=== PATIENT | male | born 1990 | race Hispanic/Latino ===

== ENCOUNTER 2019-12-17 13:48 | Emergency (ER) | payer OTHER ==
--- NOTE | 2019-12-17 14:26 | ER ---
Nurse's Notes [facility] Name: Abundio Mendoza Age: 29 yrs Sex: Male : 1990 Arrival Date: 12/17/2019 Time: 13:52 Bed 23 Private MD: Diagnosis: Displaced fracture of proximal phalanx of right little finger Presentation: 12/16 13:59 Chief complaint: Patient states: i was tying my dog up after work and the rope caught tw2 and it popped my pinky out of place and the pain just gotten worse, RIGHT hand. Chief complaint: Patient states: i head and felt a pop yesterday and i tried to get it back in place but it hurts so bad though. Coronavirus screen: The patient has NOT traveled to a country currently being monitored by the CDC within the last 14 days. Ebola Screen: Patient denies travel to an Ebola-affected area in the 21 days before illness onset. Initial Sepsis Screen: Does the patient meet any 2 criteria? No. Patient's initial sepsis screen is negative. Does the patient have a suspected source of infection? No. Patient's initial sepsis screen is negative. Risk Assessment: Do you want to hurt yourself or someone else? Patient reports no desire to harm self or others. 13:59 Method Of Arrival: Ambulatory tw2 13:59 Acuity: JESSENIA 4 tw2 Triage Assessment: 14:01 General: Appears uncomfortable, slender, Behavior is calm, cooperative, appropriate for tw2 age. Pain: Complains of pain in dorsal aspect of proximal phalanx of right ring finger, dorsal aspect of proximal phalanx of right little finger, dorsum of right hand, palmar aspect of proximal phalanx of right little finger, palmar aspect of proximal phalanx of right ring finger and outer aspect of right palm. Musculoskeletal: Circulation, motion, and sensation intact. Swelling present in right hand. Injury Description: see triage note. Historical: - Allergies: 14:02 No Known Drug Allergies; tw2 - Home Meds: 14:02 None [Active]; tw2 - PMHx: 14:02 None; tw2 - PSHx: 14:02 Cholecystectomy; tw2 - Immunization history:: Last tetanus immunization: < 5 years ago. - Social history:: Smoking status: Patient reports the use of cigarette tobacco products, smokes one-half pack cigarettes per day. Vital Signs: 13:59 BP 133 / 84; Pulse 96; Resp 17; Temp 98.9(TE); Pulse Ox 100% on R/A; Weight 70.31 kg tw2 (R); Height 5 ft. 9 in. (175.26 cm); Pain 10/10; 13:59 Body Mass Index 22.89 (70.31 kg, 175.26 cm) tw2 ED Course: 13:52 Patient arrived in ED. fj1 14:01 Triage completed. tw2 14:01 Priya Alaniz FNP-C [facility]. kb 14:01 Chandu Garcia MD is Attending Physician. kb 14:01 Arm band placed on. tw2 14:23 Hand Right 3 View XRAY In Process Unspecified. EDMS 14:32 Joie Dean, RN is Primary Nurse. ls4 Administered Medications: 14:20 CANCELLED (Other Intervention Used): TORadol 30 mg IM once kb 14:35 Drug: Tryon (7.5 mg-325 mg) 1 tabs Route: PO; ls4 Outcome: 14:25 Discharge ordered by . kb 14:45 Patient left the ED. ls4 Signatures: Dispatcher [employer] EDHI Priya Alaniz FNP-C FNP-Angelica Young, RN RN tw2 Joie Dean, RN RN ls4 Kj Graham fj1
--- NOTE | 2019-12-17 14:27 | EDPHYS ---
Physician Documentation [facility] Name: Abundio Mendoza Age: 29 yrs Sex: Male : 1990 Arrival Date: 12/17/2019 Time: 13:52 Bed 23 Private MD: ED Physician Chandu Garcia HPI: 12/16 14:08 This 29 yrs old Male presents to ER via Ambulatory with complaints of Hand kb Injury. 14:08 The patient or guardian reports decreased range of motion, injury, pain, swelling, kb tenderness. The complaints affect the right little finger. Context: The problem was sustained at home, resulted from dog pulled on leash . Onset: The symptoms/episode began/occurred yesterday. Modifying factors: The symptoms are alleviated by nothing, the symptoms are aggravated by movement. Associated signs and symptoms: The patient has no apparent associated signs or symptoms. Severity of symptoms: At their worst the symptoms were moderate, in the emergency department the symptoms are unchanged. The patient has not experienced similar symptoms in the past. The patient has not recently seen a physician. Historical: - Allergies: 14:02 No Known Drug Allergies; tw2 - Home Meds: 14:02 None [Active]; tw2 - PMHx: 14:02 None; tw2 - PSHx: 14:02 Cholecystectomy; tw2 - Immunization history:: Last tetanus immunization: < 5 years ago. - Social history:: Smoking status: Patient reports the use of cigarette tobacco products, smokes one-half pack cigarettes per day. ROS: 14:05 Constitutional: Negative for fever, chills, and weight loss, Cardiovascular: Negative kb for chest pain, palpitations, and edema, Respiratory: Negative for shortness of breath, cough, wheezing, and pleuritic chest pain, Abdomen/GI: Negative for abdominal pain, nausea, vomiting, diarrhea, and constipation, Back: Negative for injury and pain, Skin: Negative for injury, rash, and discoloration, Neuro: Negative for headache, weakness, numbness, tingling, and seizure. 14:05 MS/extremity: Positive for injury or acute deformity, decreased range of motion, pain, swelling, tenderness, of the right little finger. Exam: 14:05 Constitutional: This is a well developed, well nourished patient who is awake, alert, kb and in no acute distress. Head/Face: Normocephalic, atraumatic. Chest/axilla: Normal chest wall appearance and motion. Nontender with no deformity. No lesions are appreciated. Cardiovascular: Regular rate and rhythm with a normal S1 and S2. No gallops, murmurs, or rubs. Normal PMI, no JVD. No pulse deficits. Respiratory: Lungs have equal breath sounds bilaterally, clear to auscultation and percussion. No rales, rhonchi or wheezes noted. No increased work of breathing, no retractions or nasal flaring. Abdomen/GI: Soft, non-tender, with normal bowel sounds. No distension or tympany. No guarding or rebound. No evidence of tenderness throughout. Skin: Warm, dry with normal turgor. Normal color with no rashes, no lesions, and no evidence of cellulitis. Neuro: Awake and alert, GCS 15, oriented to person, place, time, and situation. Cranial nerves II-XII grossly intact. Motor strength 5/5 in all extremities. Sensory grossly intact. Cerebellar exam normal. Normal gait. 14:05 Musculoskeletal/extremity: Extremities: grossly normal except: noted in the right little finger: decreased ROM, pain, swelling, tenderness, ROM: limited active range of motion, in the right little finger, Circulation is intact in all extremities. Sensation intact. Vital Signs: 13:59 BP 133 / 84; Pulse 96; Resp 17; Temp 98.9(TE); Pulse Ox 100% on R/A; Weight 70.31 kg tw2 (R); Height 5 ft. 9 in. (175.26 cm); Pain 10/10; 13:59 Body Mass Index 22.89 (70.31 kg, 175.26 cm) tw2 MDM: 14:03 Patient medically screened. kb 14:05 Data reviewed: vital signs, nurses notes. Data interpreted: Pulse oximetry: on room air kb is 100 %. Interpretation: normal. 14:24 Data reviewed: radiologic studies. Test interpretation: by ED physician or midlevel kb provider: plain radiologic studies, displaced fracture of proximal phalanx on right fifth digit. Counseling: I had a detailed discussion with the patient and/or guardian regarding: the historical points, exam findings, and any diagnostic results supporting the discharge/admit diagnosis, radiology results, the need for outpatient follow up, a orthopedic surgeon, to return to the emergency department if symptoms worsen or persist or if there are any questions or concerns that arise at home. 14:27 ED course: [place] [employer] shows no prescriptions. kb 14:28 ED course: [employer] aware reviewed. No history of medications prescribed. pm1 12/16 14:01 Order name: Hand Right 3 View XRAY; Complete Time: 14:36 kb 03 14:22 Order name: Finger Splint; Complete Time: 14:42 kb Administered Medications: 14:20 CANCELLED (Other Intervention Used): TORadol 30 mg IM once kb 14:35 Drug: Ayden (7.5 mg-325 mg) 1 tabs Route: PO; ls4 Disposition: 17:01 Co-signature as Attending Physician, Chandu Garcia MD. rn Disposition: 12/17/19 14:25 Discharged to Home. Impression: Displaced fracture of proximal phalanx of right little finger. - Condition is Stable. - Discharge Instructions: Finger Fracture, [id number]. - Prescriptions for Tylenol- Codeine #3 300-30 mg Oral Tablet - take 1 tablet by ORAL route every 6 hours As needed; 15 tablet. - Medication Reconciliation Form, Thank You Letter, Antibiotic Education, Prescription Opioid Use form. - Follow up: Emergency Department; When: As needed; Reason: Worsening of condition. Follow up: Private Physician; When: 2 - 3 days; Reason: Recheck today's complaints, Continuance of care, Re-evaluation by your physician. Signatures: Dispatcher [employer] EDMS Priya Alaniz, TECHNICAL INSPECTOR-C TECHNICAL INSPECTOR-Ckb Chandu Garcia MD MD rn Marinas, Patrick, [employer] pm1 Angelica Pete RN RN tw2 Joie Dean RN RN ls4 Corrections: (The following items were deleted from the chart) 14:20 14:05 TORadol 30 mg IM once ordered. kb kb 14:45 14:25 12/17/2019 14:25 Discharged to Home. Impression: Displaced fracture of proximal ls4 phalanx of right little finger. Condition is Stable. Forms are Medication Reconciliation Form, Thank You Letter, Antibiotic Education, Prescription Opioid Use. Follow up: Emergency Department; When: As needed; Reason: Worsening of condition. Follow up: Private Physician; When: 2 - 3 days; Reason: Recheck today's complaints, Continuance of care, Re-evaluation by your physician. kb
--- NOTE | 2019-12-17 14:32 | RAD REPORT ---
EXAM DESCRIPTION: RAD - Hand Right 3 View - 12/17/2019 2:22 pm CLINICAL HISTORY: Right hand pain status post injury FINDINGS: Mildly to moderately displaced fracture involves the mid to distal aspect of the fifth pro ximal phalanx. No dislocation
[2019-12-17] MEDS ORDERED: HYDROCODONE/APAP 7.5/325 MG TAB ONE (14:38)
[2019-12-17 14:50] VITALS: BP 133/84; TEMP 98.9; O2SAT 100
== END 2019-12-17 14:45 | disposition home or self-care (01) ==
LOC: ER 13:48
PROC: 2W3JX1Z Immobilization of Right Finger using Splint (ICD-10-PCS; principal; 2019-12-17)
DX: S62.616A Displaced fracture of proximal phalanx of right little finger, initial encounter for closed fracture (principal); X58.XXXA Exposure to other specified factors, initial encounter; Y93.K1 Activity, walking an animal; Y92.9 Unspecified place or not applicable; F17.210 Nicotine dependence, cigarettes, uncomplicated
CPT/HCPCS: 99283

== ENCOUNTER 2020-04-08 19:20 | Emergency (ER) | payer OTHER ==
--- OUTSIDE RECORDS SUMMARY | 2020-04-08 19:23 | XMS REPORT | Continuity of Care Document ---
:1990 Author Organization [facility] t Address [address] [place] [address] Care Team Providers Name Role Phone Jose L Lama Attending Clinician Problems This patient has no known problems. Allergies, Adverse Reactions, Alerts This patient has no known allergies or adverse reactions. Medications This patient has no known medications. Procedures This patient has no known procedures. Encounters Start End Encounter Admission Attending Care Care Encounter Source Date/Time Date/Time Type Type Clinicians Facility Department ID 2020-02-06 2020-02-06 [facility] [id number] 15:45:00 23:59:00 Encounter [facility] [id number] Surgical [id number] Specialti [id number] es [address] 2020-02-06 2020-02-06 [facility] [id number] 15:02:05 15:17:05 Visit [facility] [id number] Surgical [id number] Specialti [id number] es [address] [place] Results This patient has no known results.
--- OUTSIDE RECORDS SUMMARY | 2020-04-08 19:23 | XMS REPORT | Summary of Care ---
:1990 Author Organization [facility] Address [address] [place] [id number] Care Team Providers Name Role Phone Pcp, Patient Does Not Have A Primary Care Provider +[id number] 0-0000 Reason for Referral Radiology Services (Routine) Status Reason Specialty Diagnoses / Referred By Referred To Procedures Contact Contact New Request Diagnostic Diagnoses Closed nondisplaced fracture of proximal phalanx of right little finger with routine healing, subsequent encounter Anthony Lopez, Radiology Procedures XR HAND <3 VW RIGHT PAC [address] [place] [address] Reason for Visit Reason Comments Follow-up Closed nondisplaced fracture of proximal phalanx of right little finger on 12/16/2019 Encounter Details Date Type Department Care Team Description 02/06/2020 Office Visit [facility] Anthony Lopez, Closed nondi splaced Orthopaedic Surgery- PAC fracture of proximal [place] [address] phalanx of right little [address], [address] finger with routine [address] [place], [place] healing, [place] [address] encounter (Primary Dx) [id number] Allergies No Known Allergiesdocumented as of this encounter (statuses as of 02/06/2020) Medications Medication Sig Dispensed Refills Start Date End Date Status acetaminophen with Take by mouth. 0 Active codeine (TYLENOL-CODEINE #3 ORAL) documented as of this encounter (statuses as of 02/06/2020) Active Problems Not on filedocumented as of this encounter (statuses as of 02/06/2020) Social History Tobacco Use Types Packs/Day Years Used Date Current Every Day Smoker Cigarettes 0.5 Smokeless Tobacco: Never Used Alcohol Use Drinks/Week oz/Week Comments Never Alcohol Habits Answer Date Recorded How often do you have a drink containing alcohol? Never 12/20/2019 How many drinks containing alcohol do you have on a typical Not asked day when you are drinking? How often do you have six or more drinks on one occasion? No t asked Sex Assigned at Date Recorded Not on file Job Start Date Occupation Industry Not on file Not on file Not on file Travel History Travel Start Travel End No recent travel history available. COVID-19 Exposure Response Date Recorded In the last month, have you been in contact with No / Unsure 02/06/2020 3:19 PM CDT someone who was confirmed or suspected to have Coronavirus / COVID-19? documented as of this encounter Last Filed Vital Signs Vital Sign Reading Time Taken Comments Blood Pressure 99/65 02/06/2020 3:15 PM CDT Pulse 71 02/06/2020 3:15 PM CDT Temperature 36.9 C (98.4 F) 02/06/2020 3:15 PM CDT Respiratory Rate - - Oxygen Saturation - - Inhaled Oxygen Concentration - - Weight 74.8 kg (165 lb) 02/06/2020 3:15 PM CDT Height 175.3 cm (5' 9") 02/06/2020 3:15 PM CDT Body Mass Index 24.37 02/06/2020 3:15 PM CDT documented in this encounter Progress Notes Anthony Lopez S, PAC - 02/06/2020 2:45 PM CDT Cc: Chief Complaint Patient presents with Follow-up Closed nondisplaced fracture of proximal phalanx of right little finger on 12/16/2019 Abundio Mendoza is a 29 year old male. Here for follow-up The encounter diagnosis was Closed nondisplaced fracture of proximal phalanx of right little finger with routine healing, subsequent encounter. 7Weeks and 2 days from the date of injury Is not experiencing any pain in his fingernail but he does have some stiffness of injury 12/16/2019, he was tying up his dog and a rope caught his finger and moved it laterally snapping his finger. Initially he went to the emergency department of [facility] x-rays were obtained and they found that he has a fracture proximal phalanx of his left small finger he was referred here they gave him Tylenol 3, he is not getting pain relief with the Tylenol 3 he prefers to just use ibuprofen [id number]. His pain is 10 over 10 in intensity. His pain has a throbbing quality. Allergies Abundio has No Known Allergies. Medications Outpatient Medications Prior to Visit Medication Sig Dispense Refill acetaminophen with codeine (TYLENOL-CODEINE #3 ORAL) Take by mouth. No facility-administered medications prior to visit. Histories No past medical history on file. No past surgical history on file. Social History Socioeconomic History Marital status: Single Spouse name: Not on file Number of children: Not on file Years of education: Not on file Highest education level: Not on file Occupational History Not on file Social Needs Financial resource strain: Not on file Food insecurity: Worry: Not on file Inability: Not on file Transportation needs: Medical: Not on file Non-medical: Not on file Tobacco Use Smoking status: Current Every Day Smoker Packs/day: 0.50 Types: Cigarettes Smokeless tobacco: Never Used Substance and Sexual Activity Alcohol use: Never Frequency: Never Drug use: Not on file Sexual activity: Not on file Lifestyle Physical activity: Days per week: Not on file Minutes per session: Not on file Stress: Not on file Relationships Social connections: Talks on phone: Not on file Gets together: Not on file Attends adventism service: Not on file Active member of club or organization: Not on file Attends meetings of clubs or organizations: Not on file Relationship status: Not on file Intimate partner violence: Fear of current or ex partner: Not on file Emotionally abused: Not on file Physically abused: Not on file Forced sexual activity: Not on file Other Topics Concern Not on file Social History Narrative Not on file Family History Problem Relation Age of Onset No Significant Medical Problems Mother No Significant Medical Problems Father Review of Systems Constitutional: Negative. HENT: Negative. Eyes: Negative. Respiratory: Negative. Cardiovascular: Negative. Gastrointestinal: Negative. Genitourinary: Negative. Musculoskeletal: Positive for joint swelling. Skin: Negative. Neurological: Negative. Psychiatric/Behavioral: Negative. Vital Signs There were no vitals taken for this visit. Physical Exam Musculoskeletal: Physical Exam Constitutional: oriented to person, place, and time. appears well-developed and well-nourished. HENT: Head: Normocephalic and atraumatic. Right Ear: External ear normal. Left Ear: External ear normal. Eyes: Conjunctivae are normal. Neck: Normal range of motion. No strabismus Neck supple. Cardiovascular: Normal rate and regular rhythm. Pulmonary/Chest: Normal respiratory rate equal chest rise and fall in no apparent distress Abdominal: Abdomen nondistended nontender Neurological: alert and oriented to person, place, and time. No asymmetry Skin: Skin is warm and dry. Psychiatric: normal mood and affect. behavior is normal. Judgment and thought content normal. Nursing note and vitals reviewed. He has garcia lines were his brace was indicating compliance, he has stiffness in his metacarpal phalangeal joint and proximal interphalangeal joint of his small finger he is able to flex to 65 at the metacarpophalangeal joint and flex to 45 at the PIP he has full extension at the metacarpophalangeal joint and -15 extension at the PIP. Assessment/Plan 1. Closed nondisplaced fracture of proximal phalanx of right little finger with routine healing, subsequent encounter XR HAND <3 VW RIGHT At this point he can come out of his brace and he needs to work on active and passive range of motion of his finger until he can bend his small finger of his right hand the same amount as his left handif he is not making progress and have getting his motion back in 2 weeks he can call and I'll send him to work with the therapist documented in this encounter Plan of Treatment Health Maintenance Due Date Last Done Comments VARICELLA VACCINES (1 of 2 - 2-dose childhood series) 1991 PNEUMOCOCCAL 0-64 YEARS COMBINED SERIES (1 of 1 - 1996 PPSV23) DTaP,Tdap,and Td Vaccines (1 - Tdap) 2001 INFLUENZA VACCINE (#1) 2019 documented as of this encounter Results XR HAND <3 VW RIGHT (02/06/2020 3:45 PM CDT) Specimen Narrative Performed At This result has an attachment that is no t available. Oblique fracture shows signs of callus formation there was some shortening PACS it is in acceptable alignment Performing Organization Address City/State/Zipcode Phone Number PACS documented in this encounter Visit Diagnoses Diagnosis Closed nondisplaced fracture of proximal phalanx of right little finger with routine healing, subsequent encounter - Primary documented in this encounter Insurance Payer Benefit Plan / Subscriber ID Effective Dates Phone Addre ss Type Group [facility] CLAIMS [id number] 2019-Present PPO (Work) [id number] documented as of this encounter
--- OUTSIDE RECORDS SUMMARY | 2020-04-08 19:24 | XMS REPORT | Summary of Care ---
:1990 Author Organization [facility] Address [address] [place] [address] Care Team Providers Name Role Phone Pcp, [...] HAND <3 VW RIGHT PAC [address] [place] [address] Reason for Visit Reason Comments Follow-up Closed nondisplaced fracture of proximal phalanx of right little finger on 12/16/2019 Encounter Details Date Type Department Care Team Description 02/06/2020 Office Visit [facility] Anthony Lopez, Closed nondi splaced Orthopaedic Surgery- PAC fracture of proximal [place] [address] phalanx of right little [address], [address] finger with routine [address] [place], [place] healing, [place] [address] encounter (Primary Dx) [phone] Allergies No Known [...] he went to the emergency department of [facility] x-rays were obtained and they found that he has a fracture proximal phalanx of his left small finger he was referred here they gave him Tylenol 3, he is not getting pain relief with the Tylenol 3 he prefers to just use ibuprofen [id number]. His pain is 10 over 10 in [...] file Gets together: Not on file Attends jain service: Not on file Active member of [...] Effective Dates Phone Addre ss Type Group [facility] GBRP CLAIMS [id number] 2019-Present PPO (Work) [id number] documented as of this encounter
--- OUTSIDE RECORDS SUMMARY | 2020-04-08 19:24 | XMS REPORT | Summary of Care ---
:1990 Author Organization [facility] Address [address] [place] [address] Care Team Providers Name Role Phone Pcp, Patient Does Not Have A Primary Care Provider +1-000-00 0-0000 Encounter Details Date Type Department Care Team Description 02/06/2020 Hospital Encounter [facility] Anthony Lopez [facility] Orthopedics - PAC Radiology [address] [place] [address] [place], [place] [phone] Allergies No Known Allergiesdocumented as of this encounter (statuses as of 02/07/2020) Medications Medication Sig Dispensed Refills Start Date End Date Status acetaminophen with Take by mouth. 0 Active codeine (TYLENOL-CODEINE #3 ORAL) documented as of this encounter (statuses as of 02/07/2020) Active Problems Not on filedocumented as of this encounter (statuses as of 02/07/2020) Social History Tobacco Use Types Packs/Day Years [...] of this encounter Last Filed Vital Signs Not on filedocumented in this encounter Plan of Treatment Health Maintenance Due Date Last Done Comments VARICELLA VACCINES (1 of 2 - 2-dose childhood series) 1991 PNEUMOCOCCAL 0-64 YEARS COMBINED SERIES (1 of 1 - 1996 PPSV23) DTaP,Tdap,and Td Vaccines (1 - Tdap) 2001 INFLUENZA VACCINE (#1) 2019 documented as of this encounter Procedures Procedure Name Priority Date/Time Associated Diagnosis Comme nts XR HAND <3 VW RIGHT Routine 02/06/2020 3:45 Closed nondisplac ed Results for this PM CDT fracture of proximal procedu re are in phalanx of right the results little finger with section. routine healing, subsequent encounter documented in this encounter Results XR HAND <3 VW RIGHT (02/06/2020 3:45 PM CDT) Specimen Narrative Performed At This result has an attachment that is no t available. Oblique fracture shows signs of callus formation there was some shortening PACS it is in acceptable alignment Performing Organization Address City/State/[place] Phone Number PACS documented in this encounter Visit Diagnoses Diagnosis Closed nondisplaced fracture of proximal phalanx of right little finger with routine healing, subsequent encounter documented in this encounter Insurance Payer Benefit Plan / Subscriber ID Effective Dates Phone Addre ss Type Group [facility] GBRP CLAIMS [id number] 2019-Present PPO (Work) [id number] documented as of this encounter
[2020-04-08] MEDS ORDERED: NA CHLORIDE 0.9% 1,000 ML ONE (20:22)
[2020-04-08] MEDS ORDERED: DIPHENHYDRAMINE 50 MG/ML VIAL ONE (20:22)
[2020-04-08] MEDS ORDERED: ONDANSETRON 4 MG/2 ML VIAL ONE (20:22)
[2020-04-08] MEDS ORDERED: PANTOPRAZOLE 40 MG INJ ONE (20:22)
[2020-04-08 20:33] LABS: Absolute Lymphocytes (CBC) 0.7 K/uL (0.7-4.9); Basophils % 0.1 % (0-1.3); Hematocrit 51.4 % (39.6-49.0); Lymphocytes % 2.5 % (15.3-44.8); MPV 8.9 fL (7.6-11.3); RBC Red Blood Cell Count 5.66 M/uL (4.33-5.43)
[2020-04-08 20:53] LABS: ALT/SGPT 182 U/L (12-78); AST/SGOT 83 U/L (15-37); Albumin 4.7 g/dL (3.4-5.0); Alkaline Phosphatase 94 U/L (45-117); BUN Blood Urea Nitrogen 17 mg/dL (7-18); Bicarbonate 23 mmol/L (21-32); Bilirubin Direct < 0.1 mg/dL (0-0.2); Bilirubin Total 0.6 mg/dL (0.2-1.0); Glucose Level 138 mg/dL (74-106); Lipase 37 U/L (73-393); Potassium 3.7 mmol/L (3.5-5.1); Protein, Total 8.6 g/dL (6.4-8.2); Sodium Level 142 mmol/L (136-145)
[2020-04-08] MEDS ORDERED: NA CHLORIDE 0.9% 2,000 ML ONE (21:19)
--- NOTE | 2020-04-08 21:20 | RAD REPORT ---
EXAM DESCRIPTION: CT - Abdomen Pelvis W Contrast - 04/08/2020 9:11 pm CLINICAL HISTORY: Abdominal pain COMPARISON: 2014 TECHNIQUE: Computed axial tomography of the abdomen pelvis was obtained. 100 cc Isovue-300 was admin istered intravenously. Oral contrast was not requested which limits evaluation of bowel. All CT scans are performed using dose optimization technique as appropriate and may include automated exposure control or mA/KV adjustment according to patient size. FINDINGS: The liver, spleen, pancreas, adrenal and kidneys appear unremarkable. There is no evidence of diverticulitis. Normal appendix Cholecystectomy IMPRESSION: No acute abnormality is displayed.
--- NOTE | 2020-04-08 22:06 | EDPHYS ---
Physician Documentation [facility] Name: Abundio Mendoza Age: 29 yrs Sex: Male : 1990 Arrival Date: 04/08/2020 Time: 19:24 Bed 5 Private MD: ED Physician Fouzia Chester HPI: 04/08 20:08 This 29 yrs old Male presents to ER via Wheelchair with complaints of cp Vomiting, Possible Alcohol Poisoning. 20:08 The patient presents to the emergency department with nausea, that is moderate, cp vomiting, that is continuous, described as blood streaked, abdominal pain, of the epigastric area and right upper quadrant. Onset: The symptoms/episode began/occurred this morning. Possible causes: patient reports having 4 glasses of liquor last night. Associated signs and symptoms: Pertinent positives: abdominal pain, anorexia, Pertinent negatives: constipation, diarrhea, fever, GI bleeding. Severity of symptoms: in the emergency department the symptoms are unchanged despite home interventions. Historical: - Allergies: 19:57 No Known Allergies; ca1 - Home Meds: 19:57 None [Active]; ca1 - PMHx: 19:57 None; ca1 - PSHx: 20:10 Cholecystectomy; jd3 - Immunization history:: Adult Immunizations up to date. - Social history:: Smoking status: Patient denies any tobacco usage or history of. ROS: 20:20 Constitutional: Positive for poor PO intake, Negative for body aches, chills, fever. cp 20:20 Eyes: Negative for injury, pain, redness, and discharge. cp 20:20 ENT: Negative for ear pain, sore throat, difficulty swallowing, difficulty handling cp secretions. 20:20 Cardiovascular: Negative for chest pain, palpitations. 20:20 Respiratory: Negative for cough, shortness of breath, wheezing. 20:20 Abdomen/GI: Positive for abdominal pain, nausea, vomiting, Negative for diarrhea, constipation, hematemesis. 20:20 : Negative for urinary symptoms, testicular pain 20:20 Neuro: Negative for altered mental status, headache, weakness. 20:20 All other systems are negative. Exam: 20:25 Constitutional: The patient appears in no acute distress, alert, awake, non-toxic, well cp developed, well nourished. 20:25 Head/Face: Normocephalic, atraumatic. cp 20:25 Eyes: Periorbital structures: appear normal, Conjunctiva: normal, no exudate, no injection, Sclera: no appreciated abnormality, Lids and lashes: appear normal, bilaterally. 20:25 ENT: External ear(s): are unremarkable, Nose: is normal, Mouth: Lips: moist, Oral mucosa: moist, Posterior pharynx: is normal, airway is patent, no erythema, no exudate. 20:25 Chest/axilla: Inspection: normal, Palpation: is normal, no crepitus, no tenderness. 20:25 Cardiovascular: Rate: normal, Rhythm: regular. 20:25 Respiratory: the patient does not display signs of respiratory distress, Respirations: normal, no use of accessory muscles, no retractions, labored breathing, is not present, Breath sounds: are clear throughout, no decreased breath sounds. 20:25 Abdomen/GI: Inspection: abdomen appears normal, Bowel sounds: active, all quadrants, Palpation: soft, in all quadrants, moderate abdominal tenderness, in the epigastric area, right upper quadrant and left upper quadrant, rebound tenderness, is not appreciated, voluntary guarding, is elicited in the epigastric area. 20:25 Back: pain, is absent, ROM is normal. 20:25 Neuro: Orientation: to person, place \T\ time. Mentation: is normal. Vital Signs: 19:55 BP 139 / 93; Pulse 85; Resp 15 S; Temp 98.3(TE); Pulse Ox 97% on R/A; Weight 70.31 kg ca1 (R); Height 5 ft. 9 in. (175.26 cm) (R); 21:26 BP 119 / 71; Pulse 99; Resp 17 S; Pulse Ox 100% on R/A; jd3 22:31 BP 102 / 66; Pulse 90; Resp 16 S; Pulse Ox 100% on R/A; jd3 19:55 Body Mass Index 22.89 (70.31 kg, 175.26 cm) ca1 MDM: 20:01 Patient medically screened. cp 20:30 Differential diagnosis: Nonspecific abd pain, gastritis, cholecystitis, pancreatitis, cp appendicitis, viral gastroenteritis, gastroenteritis. 22:02 Data reviewed: vital signs, nurses notes, lab test result(s), radiologic studies, CT cp scan, I have discussed the patient's presentation/case with the attending Emergency Department Physician; and as a result, I will discharge patient. Response to treatment: the patient's symptoms have markedly improved after treatment, Nausea and pain markedly improved and patient resting comfortably in exam room. No vomiting observed in exam room, and as a result, I will discharge patient. 04/08 20:08 Order name: Basic Metabolic Panel; Complete Time: 20:59 cp 04/08 20:59 Interpretation: Normal except: GLUC 138; GFR 72. cp 04/08 20:08 Order name: CBC with Diff cp 04/08 21:00 Interpretation: Abnormal: WBC 27.9; RBC 5.66; HCT 51.4; ROCKY% 92.9; LYM% 2.5; NEUT A cp 25.9. 04/08 20:08 Order name: Hepatic Function; Complete Time: 20:59 cp 04/08 21:00 Interpretation: Normal except: AST 83; ALT 182; TP 8.6; GLOB 3.9. cp 04/08 20:08 Order name: Lipase; Complete Time: 20:59 cp 04/08 20:59 Order name: CBC Smear Scan EDMS 04/08 20:08 Order name: IV Saline Lock; Complete Time: 20:23 cp 04/08 20:47 Order name: CT Abd/Pelvis - IV Contrast Only; Complete Time: 21:22 cp 04/08 21:23 Interpretation: Report reviewed. 04/08 20:08 Order name: Labs collected and sent; Complete Time: 20:23 cp 04/08 21:23 Order name: PO challenge; Complete Time: 21:25 cp Administered Medications: 20:23 Drug: ProTONIX 40 mg Route: IVP; Site: right antecubital; jd3 21:20 Follow up: Response: No adverse reaction jd3 20:23 Drug: Zofran (Ondansetron) 4 mg Route: IVP; Site: right antecubital; jd3 21:20 Follow up: Response: No adverse reaction jd3 20:23 Drug: Benadryl 12.5 mg Route: IVP; Site: right antecubital; jd3 21:20 Follow up: Response: No adverse reaction jd3 20:23 Drug: NS 0.9% 1000 ml Route: IV; Rate: 1 bolus; Site: right antecubital; jd3 21:20 Follow up: Response: No adverse reaction; IV Status: Completed infusion; IV Intake: jd3 1000ml 21:24 Drug: NS 0.9% 1000 ml Route: IV; Rate: 1 bolus; Site: right antecubital; jd3 22:46 Follow up: Response: No adverse reaction; IV Status: Completed infusion; IV Intake: ea 1000ml 21:25 Drug: NS 0.9% 1000 ml Route: IV; Rate: 125 ml/hr; Site: right antecubital; jd3 22:46 Follow up: Response: No adverse reaction; IV Status: Completed infusion ea Disposition: 04/09 03:11 Co-signature as Attending Physician, Fouzia Chester MD. maFred Disposition: 04/08/20 22:05 Discharged to Home. Impression: Nausea and vomiting, Elevated white blood cell count, unspecified. - Condition is Stable. - Discharge Instructions: Dehydration, Adult, Nausea and Vomiting, Adult. - Prescriptions for Pepcid 20 mg Oral Tablet - take 1 tablet by ORAL route every 12 hours for 10 days; 20 tablet. Zofran 4 mg Oral Tablet - take 1 tablet by ORAL route every 12 hours As needed; 20 tablet. - Medication Reconciliation Form, Thank You Letter, Antibiotic Education, Prescription Opioid Use form. - Follow up: Private Physician; When: 1 - 2 days; Reason: Recheck today's complaints. - Problem is new. - Symptoms have improved. Signatures: Dispatcher [employer] EDMS Kedar Lopez PA PA cp Antunez, Elena, RN RN ea Davies, Jonathon, RN RN jd3 Alzahri, Mohammad, MD MD ma2 Acob, Cheryl, RN RN ca1 Corrections: (The following items were deleted from the chart) 04/08 20:10 19:57 PSHx: None; ca1 jd3 21:00 21:00 Abnormal: WBC 27.9; RBC 5.66; HCT 51.4; ROCKY% 92.9; LYM% 2.5. cp cp 22:47 22:05 04/08/2020 22:05 Discharged to Home. Impression: Nausea and vomiting; Elevated ea white blood cell count, unspecified. Condition is Stable. Forms are Medication Reconciliation Form, Thank You Letter, Antibiotic Education, Prescription Opioid Use. Follow up: Private Physician; When: 1 - 2 days; Reason: Recheck today's complaints. Problem is new. Symptoms have improved. cp
--- NOTE | 2020-04-08 22:06 | ER ---
Nurse's Notes [facility] Name: Abundio Mendoza Age: 29 yrs Sex: Male : 1990 Arrival Date: 04/08/2020 Time: 19:24 Bed 5 Private MD: Diagnosis: Nausea and vomiting;Elevated white blood cell count, unspecified Presentation: 04/08 19:55 Chief complaint: Patient states: I drink last night, some [place]. I woke up at 1pm, then ca1 I have been throwing up since 2pm til now. I feel very weak already like I am so dehydrated. Coronavirus screen: Proceed with normal triage. Patient denies a cough. Patient denies shortness of breath or difficulty breathing. Patient denies measured and/or subjective temperature greater than 100.4F prior to today's visit. Patient denies travel on a cruise ship or to a country the [facility] currently lists as an affected area. Patient denies contact with known and/or suspected case of COVID-19. Ebola Screen: Patient negative for fever greater than or equal to 101.5 degrees Fahrenheit, and additional compatible Ebola Virus Disease symptoms Patient denies exposure to infectious person. Patient denies travel to an Ebola-affected area in the 21 days before illness onset. No symptoms or risks identified at this time. Initial Sepsis Screen: Does the patient meet any 2 criteria? No. Patient's initial sepsis screen is negative. Does the patient have a suspected source of infection? No. Patient's initial sepsis screen is negative. Risk Assessment: Do you want to hurt yourself or someone else? Patient reports no desire to harm self or others. Onset of symptoms was April 08, 2020. 19:55 Method Of Arrival: Wheelchair ca1 19:55 Acuity: JESSENIA 3 ca1 Historical: - Allergies: 19:57 No Known Allergies; ca1 - Home Meds: 19:57 None [Active]; ca1 - PMHx: 19:57 None; ca1 - PSHx: 20:10 Cholecystectomy; jd3 - Immunization history:: Adult Immunizations up to date. - Social history:: Smoking status: Patient denies any tobacco usage or history of. Screenin:05 Abuse screen: Denies threats or abuse. Nutritional screening: No deficits noted. jd3 Tuberculosis screening: No symptoms or risk factors identified. Fall Risk Ambulatory Aid- None/Bed Rest/Nurse Assist (0 pts). Gait- Normal/Bed Rest/Wheelchair (0 pts) Mental Status- Oriented to own ability (0 pts). Total Rdz Fall Scale indicates No Risk (0-24 pts). Assessment: 20:04 General: Appears in no apparent distress. uncomfortable, Behavior is calm, cooperative, jd3 appropriate for age. Pain: Complains of pain in right upper quadrant, left upper quadrant and right lower quadrant Quality of pain is described as sharp, tender. Neuro: Level of Consciousness is awake, alert, obeys commands, Oriented to person, place, time, situation. Cardiovascular: Denies chest pain, Capillary refill < 3 seconds Patient's skin is warm and dry. Respiratory: Airway is patent Respiratory effort is even, unlabored, Respiratory pattern is regular, symmetrical, Denies cough, shortness of breath. GI: Abdomen is flat, non-distended, Bowel sounds present X 4 quads. Abd is soft X 4 quads Abdomen is tender to palpation in right upper quadrant, left upper quadrant and right lower quadrant Reports lower abdominal pain, upper abdominal pain, diarrhea, nausea, vomiting. : No signs and/or symptoms were reported regarding the genitourinary system. EENT: No signs and/or symptoms were reported regarding the EENT system. Derm: Skin is intact, Skin is dry, Skin is normal, Skin temperature is warm. Musculoskeletal: Circulation, motion, and sensation intact. Range of motion: intact in all extremities. 21:26 Reassessment: Patient appears in no apparent distress at this time. Patient and/or jd3 family updated on plan of care and expected duration. Pain level reassessed. Patient is alert, oriented x 3, equal unlabored respirations, skin warm/dry/pink. Patient states feeling better. 22:31 Reassessment: Patient appears in no apparent distress at this time. Patient and/or jd3 family updated on plan of care and expected duration. Pain level reassessed. Patient is alert, oriented x 3, equal unlabored respirations, skin warm/dry/pink. Patient states feeling better. 22:45 Reassessment: Patient and/or family updated on plan of care and expected duration. Pain ea level reassessed. Patient is alert, oriented x 3, equal unlabored respirations, skin warm/dry/pink. Discharge instruction given to patient, verbalized the understanding of instruction. Pt left ED ambulatory tolerating well. Vital Signs: 19:55 BP 139 / 93; Pulse 85; Resp 15 S; Temp 98.3(TE); Pulse Ox 97% on R/A; Weight 70.31 kg ca1 (R); Height 5 ft. 9 in. (175.26 cm) (R); 21:26 BP 119 / 71; Pulse 99; Resp 17 S; Pulse Ox 100% on R/A; jd3 22:31 BP 102 / 66; Pulse 90; Resp 16 S; Pulse Ox 100% on R/A; jd3 19:55 Body Mass Index 22.89 (70.31 kg, 175.26 cm) ca1 ED Course: 19:24 Patient arrived in ED. cf2 19:54 Kedar Lopez PA is PHCP. cp 19:54 Fouzia Chester MD is Attending Physician. cp 19:56 Triage completed. ca1 19:57 Arm band placed on right wrist. ca1 20:01 Jeferson Garrison RN is Primary Nurse. jd3 20:06 Patient has correct armband on for positive identification. Bed in low position. Call j light in reach. Side rails up X 1. Adult w/ patient. Pulse ox on. NIBP on. 20:15 Inserted saline lock: 18 gauge in right antecubital area, using aseptic technique. ds4 Blood collected. 20:24 Lipase Sent. ds4 20:24 Hepatic Function Sent. ds4 20:24 CBC with Diff Sent. ds4 20:24 Basic Metabolic Panel Sent. ds4 21:11 CT Abd/Pelvis - IV Contrast Only In Process Unspecified. EDMS 21:27 CBC with Diff Sent. ds4 21:27 CBC Smear Scan Sent. ds4 22:40 IV discontinued, intact, bleeding controlled, No redness/swelling at site. Pressure ea dressing applied. 22:45 No provider procedures requiring assistance completed. ea Administered Medications: 20:23 Drug: ProTONIX 40 mg Route: IVP; Site: right antecubital; jd3 21:20 Follow up: Response: No adverse reaction jd3 20:23 Drug: Zofran (Ondansetron) 4 mg Route: IVP; Site: right antecubital; jd3 21:20 Follow up: Response: No adverse reaction jd3 20:23 Drug: Benadryl 12.5 mg Route: IVP; Site: right antecubital; jd3 21:20 Follow up: Response: No adverse reaction jd3 20:23 Drug: NS 0.9% 1000 ml Route: IV; Rate: 1 bolus; Site: right antecubital; jd3 21:20 Follow up: Response: No adverse reaction; IV Status: Completed infusion; IV Intake: jd3 1000ml 21:24 Drug: NS 0.9% 1000 ml Route: IV; Rate: 1 bolus; Site: right antecubital; jd3 22:46 Follow up: Response: No adverse reaction; IV Status: Completed infusion; IV Intake: ea 1000ml 21:25 Drug: NS 0.9% 1000 ml Route: IV; Rate: 125 ml/hr; Site: right antecubital; jd3 22:46 Follow up: Response: No adverse reaction; IV Status: Completed infusion ea Intake: 21:20 IV: 1000ml; Total: 1000ml. jd3 22:46 IV: 1000ml; Total: 2000ml. ea Outcome: 22:05 Discharge ordered by . cp 22:46 Discharged to home ambulatory. ea 22:46 Condition: stable 22:46 Discharge instructions given to patient, Instructed on discharge instructions, follow up and referral plans. medication usage, Demonstrated understanding of instructions, follow-up care, medications, Prescriptions given X 2. 22:47 Patient left the ED. ea Signatures: Dispatcher [employer] EDMS Ken Chung ds4 Kedar Lopez PA PA cp Antunez, Elena, RN RN ea Davies, Jonathon, RN RN jd3 Acob, Cheryl, RN RN ca1 Niall Duval cf2 Corrections: (The following items were deleted from the chart) 20:10 19:57 PSHx: None; ca1 jd3
[2020-04-08 22:17] LABS: Anisocytosis 1+; Blood Morphology Comment NOTED (NOT SEEN); Platelet Estimate ADEQ; Poikilocytosis 1+; Urine White Blood Cell Casts OK
[2020-04-08 22:58] VITALS: TEMP 98.3
[2020-04-08 23:00] VITALS: O2SAT 100
[2020-04-08 23:02] VITALS: BP 102/66
== END 2020-04-08 22:47 | disposition home or self-care (01) ==
LOC: ER 19:20
DX: D72.829 Elevated white blood cell count, unspecified (principal)
CPT/HCPCS: 96361; 85025; 80048; 36415; 80076; 83690; 74177; 96375; 96374; 99284; Q9967; J1200; C9113; J7030 ×2; J2405

== ENCOUNTER 2020-11-12 14:29 | Emergency (ER) | payer OTHER, SELFPAY ==
--- OUTSIDE RECORDS SUMMARY | 2020-11-12 14:52 | XMS REPORT | Continuity of Care Document ---
:1990 Author Organization [facility] t Address [address] [place] [address] Care Team Providers Name Role Phone Jose [...] Type Clinicians Facility Department ID 2020-02-06 2020-02-06 [facility] [id number] 15:45:00 23:59:00 Encounter [facility] [id number] Surgical [id number] Specialti [id number] es [address] 2020-02-06 2020-02-06 Office [facility] [id number] 15:02:05 15:17:05 Visit [facility] [id number] Surgical [id number] Specialti [phone] es [address] [place] Results This patient has no known results.
[2020-11-12] MEDS ORDERED: ACETAMINOPHEN 500 MG TAB ONE (18:15)
[2020-11-12 18:44] LABS: SARS-COV-2 RT PCR NEGATIVE (NEGATIVE)
--- NOTE | 2020-11-12 18:47 | ER ---
Nurse's Notes [facility] Name: Abundio Mendoza Age: 30 yrs Sex: Male : 1990 Arrival Date: 11/12/2020 Time: 15:02 Bed 28 Private MD: Diagnosis: Acute upper respiratory infection, unspecified Presentation: 11/12 15:33 Chief complaint: Patient states: Cough, headache, congestion, body aches, fatigue since ca1 . Coronavirus screen: Client denies travel out of the [place] in the last 14 days. chills, congestion, cough unrelated to allergies, headache, muscle pain, Client presents with at least one sign or symptom that may indicate coronavirus-19. Standard/surgical mask placed on the client. Provider contacted for isolation considerations. The client reports previous COVID testing was negative. Date of collection: November 05, 2020. Ebola Screen: Patient negative for fever greater than or equal to 101.5 degrees Fahrenheit, and additional compatible Ebola Virus Disease symptoms Patient denies exposure to infectious person. Patient denies travel to an Ebola-affected area in the 21 days before illness onset. No symptoms or risks identified at this time. Initial Sepsis Screen: Does the patient meet any 2 criteria? No. Patient's initial sepsis screen is negative. Does the patient have a suspected source of infection? No. Patient's initial sepsis screen is negative. Risk Assessment: Do you want to hurt yourself or someone else? Patient reports no desire to harm self or others. Onset of symptoms was November 12, 2020. 15:33 Method Of Arrival: Ambulatory ca1 15:33 Acuity: JESSENIA 4 ca1 Historical: - Allergies: 15:35 No Known Allergies; ca1 - Home Meds: 15:35 None [Active]; ca1 - PMHx: 15:35 None; ca1 - PSHx: 15:35 None; ca1 - Immunization history:: Flu vaccine is not up to date. - Social history:: Smoking status: Patient denies any tobacco usage or history of. Screenin:48 Abuse screen: Denies threats or abuse. Nutritional screening: No deficits noted. tw2 Tuberculosis screening: No symptoms or risk factors identified. Fall Risk None identified. Assessment: 16:40 General: Appears in no apparent distress. Behavior is calm, cooperative, appropriate tw2 for age. Pain: Complains of pain in body aches, sore throat. Neuro: Level of Consciousness is awake, alert, obeys commands, Oriented to person, place, time, situation. Cardiovascular: Capillary refill < 3 seconds. Respiratory: Airway is patent Respiratory effort is even, unlabored, Respiratory pattern is regular, symmetrical. Respiratory: Reports cough that is non-productive, dry. : No signs and/or symptoms were reported regarding the genitourinary system. Musculoskeletal: Range of motion: intact in all extremities. 17:55 Reassessment: Patient appears in no apparent distress at this time. Patient and/or tw2 family updated on plan of care and expected duration. Pain level reassessed. Patient is alert, oriented x 3, equal unlabored respirations, skin warm/dry/pink. pt c/o "headache, can i get a tylenol or something", provider notified. Patient states symptoms have not improved. 18:52 Reassessment: Patient appears in no apparent distress at this time. Patient and/or tw2 family updated on plan of care and expected duration. Pain level reassessed. Patient is alert, oriented x 3, equal unlabored respirations, skin warm/dry/pink. Vital Signs: 15:33 BP 121 / 82; Pulse 82; Resp 16 S; Temp 98.2(TE); Pulse Ox 99% on R/A; Weight 74.84 kg ca1 (R); Height 5 ft. 9 in. (175.26 cm); Pain 0/10; 17:55 BP 122 / 93; Pulse 72; Resp 17; Pulse Ox 100% on R/A; tw2 18:52 BP 118 / 78; Pulse 81; Resp 17; Pulse Ox 98% on R/A; tw2 15:33 Body Mass Index 24.37 (74.84 kg, 175.26 cm) ca1 ED Course: 15:02 Patient arrived in ED. ag5 15:35 Triage completed. ca1 15:35 Arm band placed on right wrist. ca1 15:43 Priya Alaniz FNP-C is PHCP. kb 15:43 Fouzia Chester MD is Attending Physician. kb 16:40 Bed in low position. Call light in reach. Pulse ox on. NIBP on. tw2 16:44 Angelica Pete RN is Primary Nurse. tw2 18:52 No provider procedures requiring assistance completed. Patient did not have IV access tw2 during this emergency room visit. Administered Medications: 18:01 Drug: Tylenol 1000 mg Route: PO; tw2 18:52 Follow up: Response: No adverse reaction tw2 Outcome: 18:47 Discharge ordered by MD. vivar 18:52 Discharged to home ambulatory. tw2 18:52 Condition: stable 18:52 Discharge instructions given to patient, Instructed on discharge instructions, follow up and referral plans. Demonstrated understanding of instructions, follow-up care. 18:55 Patient left the ED. tw2 Signatures: Priya Alaniz, CAR SPOTTER-C CAR SPOTTER-Angelica Young RN RN tw2 Sydney Pope RN RN ca1 Rosetta Vance ag5
--- NOTE | 2020-11-12 18:48 | EDPHYS ---
Physician Documentation [facility] Name: Abundio Mendoza Age: 30 yrs Sex: Male : 1990 Arrival Date: 11/12/2020 Time: 15:02 Bed 28 Private MD: ED Physician Fouzia Chester HPI: 11/12 21:54 This 30 yrs old Male presents to ER via Ambulatory with complaints of Cough, kb Sore Throat, Body Aches, Weakness. 21:54 The patient or guardian reports cough, that is intermittent, described as mild, kb described as "croupy", with no sputum, flu symptoms, myalgias. Onset: The symptoms/episode began/occurred 5 day(s) ago. Severity of symptoms: At their worst the symptoms were moderate, in the emergency department the symptoms are unchanged. Modifying factors: The symptoms are alleviated by nothing, the symptoms are aggravated by nothing. Associated signs and symptoms: Pertinent positives: rhinorrhea, sore throat. The patient has not experienced similar symptoms in the past. The patient has not recently seen a physician. Historical: - Allergies: 15:35 No Known Allergies; ca1 - Home Meds: 15:35 None [Active]; ca1 - PMHx: 15:35 None; ca1 - PSHx: 15:35 None; ca1 - Immunization history:: Flu vaccine is not up to date. - Social history:: Smoking status: Patient denies any tobacco usage or history of. ROS: 21:54 Cardiovascular: Negative for chest pain, palpitations, and edema, Abdomen/GI: Negative kb for abdominal pain, nausea, vomiting, diarrhea, and constipation, Back: Negative for injury and pain, MS/Extremity: Negative for injury and deformity, Skin: Negative for injury, rash, and discoloration, Neuro: Negative for headache, weakness, numbness, tingling, and seizure. 21:54 Constitutional: Positive for body aches, fatigue, malaise. 21:54 ENT: Positive for rhinorrhea, sinus congestion, sore throat. 21:54 Respiratory: Positive for cough, Negative for dyspnea on exertion, hemoptysis, orthopnea, pleurisy, shortness of breath, sputum production, wheezing. Exam: 21:55 Constitutional: This is a well developed, well nourished patient who is awake, alert, kb and in no acute distress. Head/Face: Normocephalic, atraumatic. ENT: Nares patent. No nasal discharge, no septal abnormalities noted. Tympanic membranes are normal and external auditory canals are clear. Oropharynx with no redness, swelling, or masses, exudates, or evidence of obstruction, uvula midline. Mucous membranes moist. Chest/axilla: Normal chest wall appearance and motion. Nontender with no deformity. No lesions are appreciated. Cardiovascular: Regular rate and rhythm with a normal S1 and S2. No gallops, murmurs, or rubs. Normal PMI, no JVD. No pulse deficits. Respiratory: Lungs have equal breath sounds bilaterally, clear to auscultation and percussion. No rales, rhonchi or wheezes noted. No increased work of breathing, no retractions or nasal flaring. Abdomen/GI: Soft, non-tender, with normal bowel sounds. No distension or tympany. No guarding or rebound. No evidence of tenderness throughout. Skin: Warm, dry with normal turgor. Normal color with no rashes, no lesions, and no evidence of cellulitis. MS/ Extremity: Pulses equal, no cyanosis. Neurovascular intact. Full, normal range of motion. Neuro: Awake and alert, GCS 15, oriented to person, place, time, and situation. Cranial nerves II-XII grossly intact. Motor strength 5/5 in all extremities. Sensory grossly intact. Cerebellar exam normal. Normal gait. Vital Signs: 15:33 BP 121 / 82; Pulse 82; Resp 16 S; Temp 98.2(TE); Pulse Ox 99% on R/A; Weight 74.84 kg ca1 (R); Height 5 ft. 9 in. (175.26 cm); Pain 0/10; 17:55 BP 122 / 93; Pulse 72; Resp 17; Pulse Ox 100% on R/A; tw2 18:52 BP 118 / 78; Pulse 81; Resp 17; Pulse Ox 98% on R/A; tw2 15:33 Body Mass Index 24.37 (74.84 kg, 175.26 cm) ca1 MDM: 16:45 Patient medically screened. kb 21:54 Data reviewed: vital signs, nurses notes. Data interpreted: Pulse oximetry: on room air kb is 98 %. Interpretation: normal. Counseling: I had a detailed discussion with the patient and/or guardian regarding: the historical points, exam findings, and any diagnostic results supporting the discharge/admit diagnosis, lab results, the need for outpatient follow up, a family practitioner, to return to the emergency department if symptoms worsen or persist or if there are any questions or concerns that arise at home. 11/12 18:45 Order name: COVID-19/FLU A+B; Complete Time: 18:47 EDMS Administered Medications: 18:01 Drug: Tylenol 1000 mg Route: PO; tw2 18:52 Follow up: Response: No adverse reaction tw2 Disposition: 11/13 15:56 Co-signature as Attending Physician, Fouzia Chester MD. [facility] Disposition: 11/12/20 18:47 Discharged to Home. Impression: Acute upper respiratory infection, unspecified. - Condition is Stable. - Discharge Instructions: Upper Respiratory Infection, Adult, [id number], Viral Respiratory Infection, [id number]. - Medication Reconciliation Form, Thank You Letter, Antibiotic Education, Prescription Opioid Use, Work release form form. - Follow up: Emergency Department; When: As needed; Reason: Worsening of condition. Follow up: Private Physician; When: 2 - 3 days; Reason: Recheck today's complaints, Continuance of care, Re-evaluation by your physician. Signatures: Dispatcher [employer] Priya Mobley FNP-C FNP-Angelica Young RN RN [facility] Fouzia Chester MD MD [facility] Sydney Pope RN RN ca1 Corrections: (The following items were deleted from the chart) 11/12 18:55 18:47 11/12/2020 18:47 Discharged to Home. Impression: Acute upper respiratory tw2 infection, unspecified. Condition is Stable. Forms are Work release form, Medication Reconciliation Form, Thank You Letter, Antibiotic Education, Prescription Opioid Use. Follow up: Emergency Department; When: As needed; Reason: Worsening of condition. Follow up: Private Physician; When: 2 - 3 days; Reason: Recheck today's complaints, Continuance of care, Re-evaluation by your physician. kb
[2020-11-12 21:51] VITALS: TEMP 98.2
[2020-11-12 21:53] VITALS: BP 118/78; O2SAT 98
== END 2020-11-12 18:55 | disposition home or self-care (01) ==
LOC: ER 14:29
DX: J06.9 Acute upper respiratory infection, unspecified (principal); Z20.822 Contact with and (suspected) exposure to COVID-19
CPT/HCPCS: 0240U; 99283